=== PATIENT | male | born 2000 | race Hispanic/Latino ===

== ENCOUNTER 2018-07-08 10:03 | Emergency (ER) | payer OTHER ==
--- NOTE | 2018-07-08 11:15 | ER ---
Nurse's Notes [facility] Name: Brad Valente Age: 17 yrs Sex: Male : 2000 Arrival Date: 07/08/2018 Time: 10:08 Bed 12 Private MD: Diagnosis: Chest pain, unspecified Presentation: 07/08 10:24 Presenting complaint: Patient states: i have been having chest pain for months, it tw2 comes and goes but its gotten worse, it feels like a squeezing pain in my chest and goes into my left arm. Transition of care: patient was not received from another setting of care. Onset of symptoms was July 08, 2018. Risk Assessment: Do you want to hurt yourself or someone else? Patient reports no desire to harm self or others. Initial Sepsis Screen: Does the patient meet any 2 criteria? No. Patient's initial sepsis screen is negative. Does the patient have a suspected source of infection? No. Patient's initial sepsis screen is negative. Care prior to arrival: None. 10:24 Method Of Arrival: Ambulatory tw2 10:24 Acuity: JOSE 3 tw2 Historical: - Allergies: 10:26 No Known Allergies; tw2 - Home Meds: 10:26 None [Active]; tw2 - PMHx: 10:26 None; tw2 - PSHx: 10:26 None; tw2 - Immunization history:: Adult Immunizations up to date. - Social history:: Smoking status: Patient/guardian denies using tobacco. - Ebola Screening: : Patient denies travel to an Ebola-affected area in the 21 days before illness onset. Screenin:00 Abuse screen: Denies threats or abuse. Denies injuries from another. Nutritional iw screening: No deficits noted. Tuberculosis screening: No symptoms or risk factors identified. Fall Risk None identified. Assessment: 10:59 General: Appears in no apparent distress. comfortable, Behavior is calm, cooperative. iw Pain: Denies pain. Pain does not radiate. Pain began Is intermittent. Neuro: Level of Consciousness is awake, alert, obeys commands, Oriented to person, place, time, situation, Moves all extremities. Full function. Cardiovascular: Patient's skin is warm and dry. Respiratory: Respiratory effort is even, unlabored, Respiratory pattern is regular, symmetrical. Derm: Skin is intact, is healthy with good turgor. Musculoskeletal: Range of motion: intact in all extremities. Vital Signs: 10:25 BP 122 / 81; Pulse 57; Resp 18; Temp 97.7(O); Pulse Ox 98% on R/A; Weight 67.13 kg (R); tw2 Height 5 ft. 7 in. (170.18 cm); Pain 0/10; 10:25 Body Mass Index 23.18 (67.13 kg, 170.18 cm) tw2 10:25 but when it hits about an 8/10 tw2 ED Course: 10:08 Patient arrived in ED. mr 10:24 Triage completed. tw2 10:25 Arm band placed on. tw2 10:25 Patient has correct armband on for positive identification. Pulse ox on. iw 10:26 Patient maintains SpO2 saturation greater than 95% on room air. tw2 10:35 Treasure Little, RAVEN is Primary Nurse. iw 10:38 Elmer Fry NP is PHCP. pm1 10:38 Osito Lozano MD is Attending Physician. pm1 10:52 EKG done, by x ray service technician. reviewed by Osito Lozano MD. at1 11:30 No provider procedures requiring assistance completed. Patient did not have IV access iw during this emergency room visit. Administered Medications: No medications were administered Outcome: 11:14 Discharge ordered by . pm1 11:31 Discharged to home ambulatory, with family. iw 11:31 Condition: good 11:31 Discharge instructions given to patient, Instructed on discharge instructions, follow up and referral plans. Demonstrated understanding of instructions, follow-up care. 11:32 Patient left the ED. iw Signatures: Sophie Joya mr Treasure Little, RAVEN CARBAJAL iw Carrie Watkins, putty and caulking supervisor EKG Tat1 Elmer Fry NP DEBURRER pm1 Ginna Finn RN RN tw2
--- NOTE | 2018-07-08 11:15 | EDPHYS ---
Physician Documentation [facility] Name: Brad Valente Age: 17 yrs Sex: Male : 2000 Arrival Date: 07/08/2018 Time: 10:08 Bed 12 Private MD: ED Physician Osito Lozano HPI: 07/08 10:47 This 17 yrs old Male presents to ER via Ambulatory with complaints of Chest pm1 Pain. 10:47 The patient or guardian reports chest pain that is located primarily in the anterior pm1 chest wall, left. The pain does not radiate. Associated signs and symptoms: The patient has no apparent associated signs or symptoms. The chest pain is described as sharp. Duration: The patient or guardian reports a single episode, that is now resolved. Modifying factors: The symptoms are alleviated by nothing. the symptoms are aggravated by nothing. Severity of pain: in the emergency department the pain has resolved 14 day(s) prior to arrival. The patient has experienced similar episodes in the past, multiple times, On and off for the past 6 years. The patient has not recently seen a physician. Patient came to the ER today for evaluation of his chest pain due to the insistence of his mother. Patient with on and off chest pain for the past 6 years. Patient's last episode of chest pain was 2 weeks ago. Historical: - Allergies: 10:26 No Known Allergies; tw2 - Home Meds: 10:26 None [Active]; tw2 - PMHx: 10:26 None; tw2 - PSHx: 10:26 None; tw2 - Immunization history:: Adult Immunizations up to date. - Social history:: Smoking status: Patient/guardian denies using tobacco. - Ebola Screening: : Patient denies travel to an Ebola-affected area in the 21 days before illness onset. ROS: 10:47 Constitutional: Negative for fever, chills, and weight loss, Eyes: Negative for injury, pm1 pain, redness, and discharge, ENT: Negative for injury, pain, and discharge, Neck: Negative for injury, pain, and swelling, Respiratory: Negative for shortness of breath, cough, wheezing, and pleuritic chest pain, Abdomen/GI: Negative for abdominal pain, nausea, vomiting, diarrhea, and constipation, Back: Negative for injury and pain. 10:47 : Negative for injury, bleeding, discharge, and swelling, MS/Extremity: Negative for injury and deformity, Skin: Negative for injury, rash, and discoloration, Neuro: Negative for headache, weakness, numbness, tingling, and seizure. 10:47 Cardiovascular: Positive for chest pain, Negative for edema, orthopnea, palpitations. Exam: 10:47 Constitutional: This is a well developed, well nourished patient who is awake, alert, pm1 and in no acute distress. Head/Face: Normocephalic, atraumatic. Eyes: Pupils equal round and reactive to light, extra-ocular motions intact. Lids and lashes normal. Conjunctiva and sclera are non-icteric and not injected. Cornea within normal limits. Periorbital areas with no swelling, redness, or edema. ENT: Nares patent. No nasal discharge, no septal abnormalities noted. Tympanic membranes are normal and external auditory canals are clear. Oropharynx with no redness, swelling, or masses, exudates, or evidence of obstruction, uvula midline. Mucous membranes moist. Neck: Trachea midline, no thyromegaly or masses palpated, and no cervical lymphadenopathy. Supple, full range of motion without nuchal rigidity, or vertebral point tenderness. No Meningismus. Chest/axilla: Normal chest wall appearance and motion. Nontender with no deformity. No lesions are appreciated. Cardiovascular: Regular rate and rhythm with a normal S1 and S2. No gallops, murmurs, or rubs. Normal PMI, no JVD. No pulse deficits. Respiratory: Lungs have equal breath sounds bilaterally, clear to auscultation and percussion. No rales, rhonchi or wheezes noted. No increased work of breathing, no retractions or nasal flaring. Abdomen/GI: Soft, non-tender, with normal bowel sounds. No distension or tympany. No guarding or rebound. No evidence of tenderness throughout. Back: No spinal tenderness. No costovertebral tenderness. Full range of motion. Skin: Warm, dry with normal turgor. Normal color with no rashes, no lesions, and no evidence of cellulitis. MS/ Extremity: Pulses equal, no cyanosis. Neurovascular intact. Full, normal range of motion. 10:47 Neuro: Orientation: is normal, Motor: is normal, moves all fours, Gait: is steady, at a normal pace, without difficulty. Vital Signs: 10:25 BP 122 / 81; Pulse 57; Resp 18; Temp 97.7(O); Pulse Ox 98% on R/A; Weight 67.13 kg (R); tw2 Height 5 ft. 7 in. (170.18 cm); Pain 0/10; 10:25 Body Mass Index 23.18 (67.13 kg, 170.18 cm) tw2 10:25 but when it hits about an 8/10 tw2 MDM: 10:39 Patient medically screened. pm1 10:47 Data reviewed: vital signs. Data interpreted: Pulse oximetry: on room air is 98 %. pm1 Interpretation: normal. 11:14 Counseling: I had a detailed discussion with the patient and/or guardian regarding: the pm1 historical points, exam findings, and any diagnostic results supporting the discharge/admit diagnosis, the need for outpatient follow up, a family practitioner, to return to the emergency department if symptoms worsen or persist or if there are any questions or concerns that arise at home. Administered Medications: No medications were administered Disposition: 07/08/18 11:14 Discharged to Home. Impression: Chest pain, unspecified. - Condition is Stable. - Discharge Instructions: Nonspecific Chest Pain. - Work release form, Medication Reconciliation Form, Thank You Letter form. - Follow up: Emergency Department; When: As needed; Reason: Worsening of condition. Follow up: Private Physician; When: 2 - 3 days; Reason: Recheck today's complaints, Continuance of care, Re-evaluation by your physician. - Problem is new. - Symptoms are resolved. Addendum: 07/15/2018 08:50 Co-signature as Attending Physician, Osito Lozano MD I agree with the assessment and k dr plan of care. Signatures: Osito Lozano MD MD kdr Treasure Little RN RN iw Elmer Fry, ROEL INFECTION PREVENTION COORDINATOR pm1 Ginna Finn RN RN tw2 Corrections: (The following items were deleted from the chart) 07/08 11:32 11:14 07/08/2018 11:14 Discharged to Home. Impression: Chest pain, unspecified. iw Condition is Stable. Forms are Medication Reconciliation Form, Thank You Letter, Antibiotic Education, Prescription Opioid Use. Follow up: Emergency Department; When: As needed; Reason: Worsening of condition. Follow up: Private Physician; When: 2 - 3 days; Reason: Recheck today's complaints, Continuance of care, Re-evaluation by your physician. Problem is new. Symptoms are resolved. pm1
--- NOTE | 2018-07-08 16:49 | EKG ---
Test Date: 2018-07-08 Test Time: 10:22:51 Recycling Crew Supervisor: ROGER MEASUREMENT RESULTS: Intervals: Rate: 58 DC: 98 QRSD: 94 QT: 400 QTc: 392 [place]: P: 43 DC: 98 QRS: 85 T: 69 INTERPRETIVE STATEMENTS: Sinus bradycardia with short DC Otherwise normal ECG Compared to ECG 03/19/2011 07:07:14 Short DC interval now present Sinus rhythm no longer present Electronically Signed On 07-08-18 16:48:27 CMA OR LPN by Judah Nye
== END 2018-07-08 11:32 | disposition home or self-care (01) ==
LOC: ER 10:03
DX: R07.9 Chest pain, unspecified (principal)
CPT/HCPCS: 93005; 99284

== ENCOUNTER 2020-07-08 11:54 | Emergency (ER) | payer OTHER, SELFPAY ==
--- OUTSIDE RECORDS SUMMARY | 2020-07-08 11:56 | XMS REPORT | Continuity of Care Document ---
:2000 Author Organization [facility] t Address [address] [place] [address] [address] [place] [address] Care Team Providers Name Role Phone Unavailable Unavailable Unavailable Problems This patient has no known problems. Allergies, Adverse Reactions, Alerts This patient has no known allergies or adverse reactions. Medications This patient has no known medications. Procedures This patient has no known procedures. Results This patient has no known results.
[2020-07-08] MEDS ORDERED: MORPHINE 4 MG/ML SYR ONE (12:14)
--- NOTE | 2020-07-08 12:24 | RAD REPORT ---
EXAM DESCRIPTION: RAD - Shoulder Left 2 View - 07/08/2020 12:14 pm CLINICAL HISTORY: likely dislocated;Pain COMPARISON: None TECHNIQUE: Internal and external rotation views of the left shoulder were obtained. Scapula Y-view a lso obtained. FINDINGS: Left humeral head is dislocated medial and inferior to the glenoid typical for anterior di slocation. No fracture of the proximal humerus identifiable. No AC joint abnormality. No other signif icant finding. IMPRESSION: Anterior dislocation left humeral head. No fracture identified.
[2020-07-08] MEDS ORDERED: ETOMIDATE 20 MG/10 ML VIAL IV ONE (12:47)
[2020-07-08] MEDS ORDERED: ONDANSETRON 4 MG/2 ML VIAL ONE (12:55)
--- NOTE | 2020-07-08 13:11 | EDPHYS ---
Physician Documentation [facility] Name: Brad Valente Age: 19 yrs Sex: Male : 2000 Arrival Date: 07/08/2020 Time: 11:55 Bed 4 Private MD: ED Physician Jordan Khanna HPI: 07/08 11:57 This 19 yrs old Male presents to ER via Unassigned with complaints of possible rn shoulder dislocation. 11:57 The patient or guardian complains of decreased range of motion, deformity, an injury, rn pain. left shoulder. Onset: The symptoms/episode began/occurred just prior to arrival. Modifying factors: the symptoms are alleviated by nothing. The symptoms are aggravated by movement, rotation of arm. Severity of symptoms: At their worst the symptoms were mild, in the emergency department the symptoms are unchanged. The patient has not experienced similar symptoms in the past. The patient has not recently seen a physician. Reports playing soccer, left hand got caught in grass and got pulled back behind body, heard a pop, has never had shoulder injury or surgery/dislocation. No other injury or pain. . Historical: - Allergies: 12:08 No Known Allergies; jl7 - Home Meds: 12:08 None [Active]; jl7 - PMHx: 12:08 None; jl7 - PSHx: 12:08 None; jl7 - Immunization history:: Adult Immunizations unknown. - Social history:: Smoking status: unknown. - Family history:: not pertinent. ROS: 11:57 Constitutional: Negative for fever, chills, and weight loss, Neck: Negative for injury, rn pain, and swelling, Cardiovascular: Negative for chest pain, palpitations, and edema, Respiratory: Negative for shortness of breath, cough, wheezing, and pleuritic chest pain, Back: Negative for injury and pain, MS/Extremity: + left arm injury and pain Neuro: Negative for headache, weakness, numbness, tingling, and seizure. Exam: 11:57 Constitutional: This is a well developed, well nourished patient who is awake, alert, rn left arm held in passive flexion, appears uncomfortable. Head/Face: Normocephalic, atraumatic. Neck: NO midline tenderness Chest/axilla: Normal chest wall appearance and motion. Nontender with no deformity. No lesions are appreciated. Cardiovascular: Tachycardic, regular Respiratory: No increased work of breathing, no retractions or nasal flaring. MS/ Extremity: Pulses equal, no cyanosis. Neurovascular intact. Left arm held in passive flexion, left glenoid appears empty with anterior/medial prominence. Vital Signs: 11:55 BP 121 / 95; Pulse 70; Resp 19; Temp 97.8; Pulse Ox 100% ; Pain 10/10; jl7 12:58 BP 154 / 89; Pulse 65; Resp 15; Pulse Ox 100% ; jl7 Procedures: 13:06 Reduction: of the left shoulder, using traction, manipulation, rn traction/countertraction, Immobilized with shoulder immobilizer. Patient tolerated well. Post reduction film - reveals normal alignment. Moderate sedation: Pre-procedure assessment: the patient has been NPO 3 hour(s) prior to arrival, ASA physical classification: I - healthy, no underlying organic disease, Airway assessment: able to hyperextend neck, able to maintain airway, can open mouth without difficulty, Monitoring during procedure: monitoring tech, continuous pulse oximetry, nurse at bedside at all times, Medications employed: Etomidate, 20 mg(s), Post-procedure assessment: the patient is mildly sedated, pt required higher than normal dose of etomidate, likely secondary to amount of drinking he does, reported after sedation started that drinks about 16 beers at a time. . MDM: 11:55 Patient medically screened. rn 13:06 Differential diagnosis: Anterior dislocation with fracture, Anterior dislocation rn without fracture, humeral head fracture, glenoid fracture. Data reviewed: vital signs, nurses notes, radiologic studies, plain films. Test interpretation: by ED physician or midlevel provider: plain radiologic studies, Xray shoulder shows Anterior shoulder dislocation without fracture. Counseling: I had a detailed discussion with the patient and/or guardian regarding: the historical points, exam findings, and any diagnostic results supporting the discharge/admit diagnosis, radiology results, the need for outpatient follow up, to return to the emergency department if symptoms worsen or persist or if there are any questions or concerns that arise at home. Response to treatment: the patient's symptoms have markedly improved after treatment, and as a result, I will discharge patient. Special discussion: I discussed with the patient/guardian in detail that at this point there is no indication for admission to the hospital. It is understood, however, that if the symptoms persist or worsen the patient needs to return immediately for re-evaluation. ED course: Pt awake, talking, even 20 mg etomidate didn't put him to complete sedation, has ride home, stable vitals, post-reduction xray shows successful reduction.. 13:10 Counseling: I had a detailed discussion with the patient and/or guardian regarding: rn Counseled several times to stop or limit drinking. . 07/08 11:56 Order name: XRAY Shoulder LEFT 2 view; Complete Time: 12:27 rn 07/08 12:54 Order name: XRAY Shoulder (1 View) rn 07/08 11:56 Order name: NPO; Complete Time: 12:08 rn 07/08 11:56 Order name: IV Start; Complete Time: 12:08 rn Administered Medications: 12:00 Drug: morphine 4 mg Route: IVP; Site: right antecubital; jl7 12:30 Follow up: Response: No adverse reaction; Pain is unchanged, physician notified jl7 12:43 Drug: Etomidate 20 mg Route: IVP; Site: right antecubital; jl7 12:59 Follow up: Response: No adverse reaction jl7 Disposition: 07/08/20 13:10 Discharged to Home. Impression: Other dislocation of left shoulder joint. - Condition is Stable. - Discharge Instructions: Shoulder Dislocation, How to Use a Shoulder Immobilizer. - Medication Reconciliation Form, Thank You Letter, Antibiotic Education, Prescription Opioid Use form. - Follow up: Alf Castro MD; When: As needed; Reason: Recheck today's complaints, Re-evaluation by your physician. - Problem is new. - Symptoms have improved. Signatures: Dispatcher [employer] EDMS Jordan Khanna MD MD rn Leal, Jahala, RN RN jl7 Corrections: (The following items were deleted from the chart) 13:35 13:10 07/08/2020 13:10 Discharged to Home. Impression: Other dislocation of left jl7 shoulder joint. Condition is Stable. Forms are Medication Reconciliation Form, Thank You Letter, Antibiotic Education, Prescription Opioid Use. Follow up: Alf Castro; When: As needed; Reason: Recheck today's complaints, Re-evaluation by your physician. Problem is new. Symptoms have improved. rn
--- NOTE | 2020-07-08 13:11 | ER ---
Nurse's Notes [facility] Name: Brad Valente Age: 19 yrs Sex: Male : 2000 Arrival Date: 07/08/2020 Time: 11:55 Bed 4 Private MD: Diagnosis: Other dislocation of left shoulder joint Presentation: 07/08 11:55 Chief complaint: EMS states: playing soccer, fell with left arm out in front, left jl7 shoulder appears dislocated. Coronavirus screen: Client denies travel out of the [place] in the last 14 days. At this time, the client does not indicate any symptoms associated with coronavirus-19. Ebola Screen: No symptoms or risks identified at this time. Initial Sepsis Screen: Does the patient meet any 2 criteria? No. Patient's initial sepsis screen is negative. Does the patient have a suspected source of infection? No. Patient's initial sepsis screen is negative. 11:55 Method Of Arrival: EMS: [place] [address] 11:55 Risk Assessment: Do you want to hurt yourself or someone else? Patient reports no jl7 desire to harm self or others. Onset of symptoms was July 08, 2020. Care prior to arrival: Medication(s) given: Fentanyl 50 mcg, IV IV initiated. 18 GA, in the right antecubital area. 11:55 Acuity: JOSE 3 jl7 Triage Assessment: 11:55 General: Appears in no apparent distress. uncomfortable, Behavior is calm, cooperative, jl7 appropriate for age. Pain: Complains of pain in left shoulder. Neuro: Level of Consciousness is awake, alert, obeys commands, Oriented to person, place, time, situation. Cardiovascular: Patient's skin is warm and dry. Respiratory: Airway is patent Respiratory effort is even, unlabored, Respiratory pattern is regular, symmetrical. Derm: Skin is pink, warm \T\ dry. Musculoskeletal: Swelling present in left shoulder. Historical: - Allergies: 12:08 No Known Allergies; jl7 - Home Meds: 12:08 None [Active]; jl7 - PMHx: 12:08 None; jl7 - PSHx: 12:08 None; jl7 - Immunization history:: Adult Immunizations unknown. - Social history:: Smoking status: unknown. - Family history:: not pertinent. Screenin:00 Abuse screen: Denies threats or abuse. Denies injuries from another. Nutritional jl7 screening: No deficits noted. Tuberculosis screening: No symptoms or risk factors identified. Fall Risk IV access (20 points). Total Delarosa Fall Scale indicates No Risk (0-24 pts). Assessment: 12:00 General: See triage assessment. jl7 12:58 Reassessment: Patient appears in no apparent distress at this time. Patient and/or jl7 family updated on plan of care and expected duration. Pain level reassessed. Patient is alert, oriented x 3, equal unlabored respirations, skin warm/dry/pink. Patient states feeling better. Patient states symptoms have improved. 13:35 Reassessment: Patient appears in no apparent distress at this time. Neuro: Level of jl7 Consciousness is awake, alert, obeys commands, Oriented to person, place, time, situation. Cardiovascular: Patient's skin is warm and dry. Respiratory: Airway is patent Respiratory effort is even, unlabored, Respiratory pattern is regular, symmetrical. Vital Signs: 11:55 BP 121 / 95; Pulse 70; Resp 19; Temp 97.8; Pulse Ox 100% ; Pain 10/10; jl7 12:58 BP 154 / 89; Pulse 65; Resp 15; Pulse Ox 100% ; jl7 ED Course: 11:55 Patient arrived in ED. rn 11:55 Jordan Khanna MD is Attending Physician. rn 11:55 Arm band placed on right wrist. jl7 11:57 Gianfranco Deluna, RAVEN is Primary Nurse. jl7 12:00 Patient has correct armband on for positive identification. Placed in gown. Bed in low jl7 position. Call light in reach. Side rails up X 1. hall monitor on. Pulse ox on. NIBP on. Warm blanket given. 12:06 Triage completed. jl7 12:14 XRAY Shoulder LEFT 2 view In Process Unspecified. EDMS 13:10 Alf Castro MD is Referral Physician. rn 13:24 XRAY Shoulder (1 View) In Process Unspecified. EDMS 13:34 No provider procedures requiring assistance completed. IV discontinued, intact, jl7 bleeding controlled, No redness/swelling at site. Pressure dressing applied. Administered Medications: 12:00 Drug: morphine 4 mg Route: IVP; Site: right antecubital; jl7 12:30 Follow up: Response: No adverse reaction; Pain is unchanged, physician notified jl7 12:43 Drug: Etomidate 20 mg Route: IVP; Site: right antecubital; jl7 12:59 Follow up: Response: No adverse reaction jl7 Outcome: 13:10 Discharge ordered by . rn 13:34 Discharged to home ambulatory. jl7 13:34 Condition: stable 13:34 Discharge instructions given to patient, Instructed on discharge instructions, follow up and referral plans. Demonstrated understanding of instructions, follow-up care. 13:35 Patient left the ED. jl7 Signatures: Dispatcher [employer] EDMS Jordan Khanna MD MD rn Leal, Jahala, RN RN jl7
--- NOTE | 2020-07-08 13:38 | RAD REPORT ---
EXAM DESCRIPTION: RAD - Shoulder 1 View - 07/08/2020 1:24 pm FINDINGS: Single AP view labeled postreduction shows the humeral head in anatomic position. No fracture or suspicious finding.
[2020-07-08 13:40] VITALS: TEMP 97.8; O2SAT 100
[2020-07-08 13:46] VITALS: BP 154/89
== END 2020-07-08 13:35 | disposition home or self-care (01) ==
LOC: ER 11:54
PROC: 0RSKXZZ Reposition Left Shoulder Joint, External Approach (ICD-10-PCS; principal; 2020-07-08)
DX: S43.085A Other dislocation of left shoulder joint, initial encounter (principal); X58.XXXA Exposure to other specified factors, initial encounter; Y93.66 Activity, soccer; Y92.322 Soccer field as the place of occurrence of the external cause
CPT/HCPCS: 73020; 96374; 96375; 99284; J2405

== ENCOUNTER 2022-01-12 15:00 | Emergency (ER) | payer SELFPAY ==
[2022-01-12] MEDS ORDERED: MIDAZOLAM HCL 2 MG/2 ML INJ ONE (15:26)
[2022-01-12] MEDS ORDERED: FENTANYL CITR 100 MCG/2 ML ONE (15:26)
[2022-01-12] MEDS ORDERED: ONDANSETRON 4 MG/2 ML VIAL ONE (15:26)
[2022-01-12] MEDS ORDERED: KETAMINE HCL 500 MG/5 ML VIAL ONE (15:43)
--- NOTE | 2022-01-12 16:02 | RAD REPORT ---
EXAM DESCRIPTION: RAD - Shoulder Right 2 View - 01/12/2022 3:54 pm CLINICAL HISTORY: PAIN COMPARISON: Shoulder Left 2 View dated 07/08/2020; Shoulder 1 View dated 07/08/2020 FINDINGS/IMPRESSION: The left shoulder is located. The position is similar to the postreduction radi ograph from 07/08/2020. Chronic deformity at the greater tuberosity.
--- NOTE | 2022-01-12 16:33 | ER ---
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 States this is his 4th time to dislocate the same shoulder. Coronavirus screen: Vaccine status: Patient reports being unvaccinated. Client denies travel out of the [place] in the last 14 days. At this time, the client does not indicate any symptoms associated with coronavirus-19. Ebola Screen: Patient denies travel to an Ebola-affected area in the 21 days before illness onset. Initial Sepsis Screen: Does the patient meet any 2 criteria? No. Patient's initial sepsis screen is negative. Does the patient have a suspected source of infection? Yes: Bone or joint infection. Risk Assessment: Do you want to hurt yourself or someone else? Patient reports no desire to harm self or others. Onset of symptoms was January 12, 2022. 15:12 Method Of Arrival: Ambulatory ll1 15:12 Acuity: JOSE 2 ll1 Triage Assessment: 15:13 General: Appears uncomfortable, ill, Behavior is cooperative, appropriate for age. ll1 Pain: Complains of pain in left shoulder Quality of pain is described as aching, throbbing. Musculoskeletal: Circulation, motion, and sensation intact. Capillary refill < 3 seconds, Range of motion: intact in left shoulder. Historical: - Allergies: 15:12 No Known Allergies; ll1 - PMHx: 15:12 shoulder dislocation; ll1 - Immunization history:: Client reports having NOT received the Covid vaccine. - Social history:: Smoking status: Patient denies any tobacco usage or history of. Screenin:11 Abuse screen: Denies threats or abuse. Nutritional screening: No deficits noted. jd3 Tuberculosis screening: Fall Risk Ambulatory Aid- None/Bed Rest/Nurse Assist (0 pts). Gait- Normal/Bed Rest/Wheelchair (0 pts) Mental Status- Oriented to own ability (0 pts). Total Delarosa Fall Scale indicates No Risk (0-24 pts). Assessment: 15:10 General: Appears in no apparent distress. uncomfortable, Behavior is calm, cooperative, jd3 appropriate for age. Pain: Complains of pain in left shoulder. Neuro: Lee Agitation-Sedation Scale (RASS): 0 - Alert and Calm Level of Consciousness is awake, alert, obeys commands, Oriented to person, place, time, situation. Cardiovascular: Capillary refill < 3 seconds Patient's skin is warm and dry. Respiratory: Airway is patent Respiratory effort is even, unlabored, Respiratory pattern is regular, symmetrical. GI: No signs and/or symptoms were reported involving the gastrointestinal system. : No signs and/or symptoms were reported regarding the genitourinary system. EENT: No signs and/or symptoms were reported regarding the EENT system. Derm: Skin is intact, Skin is dry, Skin is normal, Skin temperature is warm. Musculoskeletal: Circulation, motion, and sensation intact. Range of motion: limited in left shoulder Swelling present in left shoulder. 15:38 Reassessment: Patient and/or family updated on plan of care and expected duration. Pain jd3 level reassessed. Patient is alert, oriented x 3, equal unlabored respirations, skin warm/dry/pink. conscious sedation for reduction of left shoulder done. see conscious sedation flow sheet. 16:05 Reassessment: Patient and/or family updated on plan of care and expected duration. Pain jd3 level reassessed. Patient is alert, oriented x 3, equal unlabored respirations, skin warm/dry/pink. pt fully awake. end of 1:1 monitoring post conscious sedation/ reduction. 16:43 Reassessment: Patient appears in no apparent distress at this time. Patient and/or jd3 family updated on plan of care and expected duration. Pain level reassessed. Patient is alert, oriented x 3, equal unlabored respirations, skin warm/dry/pink. Patient states feeling better. 16:56 Reassessment: Patient appears in no apparent distress at this time. Patient and/or jd3 family updated on plan of care and expected duration. Pain level reassessed. Patient is alert, oriented x 3, equal unlabored respirations, skin warm/dry/pink. even and steady gait to front of ER to meet family for discharge. Vital Signs: 15:12 BP 91 / 70; Pulse 54; Resp 18; Temp 97.9; Pulse Ox 100% ; Weight 68.95 kg; Height 5 ft. ll1 7 in. (170.18 cm); Pain 8/10; 16:14 BP 124 / 90; Pulse 98; Resp 15; Pulse Ox 97% on 4 lpm NC; jd3 16:25 Pain 4/10; jd3 16:43 BP 129 / 88; Pulse 91; Resp 16; Pulse Ox 98% on R/A; jd3 15:12 Body Mass Index 23.81 (68.95 kg, 170.18 cm) ll1 ED Course: 15:01 Patient arrived in ED. mr 15:06 Brenda Bhatia MD is Attending Physician. sd2 15:10 Misha Arce, RAVEN is Primary Nurse. jd3 15:11 Arm band placed on Patient placed in an exam room, on a stretcher. ll1 15:13 Triage completed. ll1 15:15 Consent for conscious sedation explained by staff, explained by physician, verbal jd3 consent given by pt prior to procedure. signed copy to be added to chart prior to discharge. 15:48 Shoulder immobilizer applied on left shoulder. jd3 15:56 XRAY Shoulder RIGHT 2 view In Process Unspecified. EDMS 16:15 Patient has correct armband on for positive identification. Bed in low position. Call jd3 light in reach. Side rails up X2. Client placed on continuous cardiac and pulse oximetry monitoring. NIBP monitoring applied. environmental monitoring technician on. Pulse ox on. NIBP on. 16:31 Alf Castro MD is Referral Physician. sd2 16:57 No provider procedures requiring assistance completed. IV discontinued, intact, jd3 bleeding controlled, No redness/swelling at site. Pressure dressing applied. Administered Medications: 15:25 Drug: Zofran (Ondansetron) 4 mg Route: IVP; Site: right antecubital; jd3 16:25 Follow up: Response: No adverse reaction jd3 15:25 Drug: fentaNYL (PF) 100 mcg {Note: pain 10/10.} Route: IVP; Site: right antecubital; jd3 16:25 Follow up: Pain 4/10 Adult; Response: No adverse reaction; RASS: Alert and Calm (0) jd3 15:25 Drug: Midazolam 1 mg {Note: given by provider.} Route: IVP; Site: right antecubital; jd3 16:25 Follow up: Response: No adverse reaction; RASS: Alert and Calm (0) jd3 15:38 Drug: Ketamine 50 mg {Note: given by provider.} Route: IVP; Site: right antecubital; jd3 16:35 Follow up: Response: No adverse reaction; RASS: Alert and Calm (0) jd3 Medication: 16:07 VIS not applicable for this client. jd3 Outcome: 16:32 Discharge ordered by . sd2 16:57 Discharged to home ambulatory, with family. jd3 16:57 Condition: stable 16:57 Discharge instructions given to patient, Instructed on discharge instructions, follow up and referral plans. Demonstrated understanding of instructions, follow-up care. 16:58 Patient left the ED. jd3 Signatures: Dispatcher [employer] RAYAMS JoyaSophie mr ArceMisha RN RN jd3 Bautista Mcfadden RN RN ll1 Brenda Bhatia MD MD sd2 Corrections: (The following items were deleted from the chart) 16:12 15:25 fentaNYL (PF) 100 mcg IVP in right antecubital jd3 jd3
--- NOTE | 2022-01-12 16:33 | EDPHYS ---
Physician Documentation [facility] Name: Brad Valente Age: 21 yrs Sex: Male : 2000 Arrival Date: 01/12/2022 Time: 15:01 Bed 15 Private MD: ED Physician Brenda Bhatia HPI: 01/12 15:55 This 21 yrs old Male presents to ER via Ambulatory with complaints of sd2 Dislocated shoulder. 16:25 21-year-old male presents with chief complaint of left dislocated shoulder that sd2 occurred while he was playing soccer today. He reports another teammate came up behind him and lifted his arm and rotated it backwards causing it to dislocate. He has a history of 3 prior shoulder dislocations on the same side. He has yet to follow-up with orthopedics regarding this. He denies any other areas of injury or pain at this time. He denies any numbness, tingling or weakness to the arm.. Historical: - Allergies: 15:12 No Known Allergies; ll1 - PMHx: 15:12 shoulder dislocation; ll1 - Immunization history:: Client reports having NOT received the Covid vaccine. - Social history:: Smoking status: Patient denies any tobacco usage or history of. ROS: 16:25 Constitutional: Negative for fever, chills, and weight loss, Cardiovascular: Negative sd2 for chest pain, palpitations, and edema, Respiratory: Negative for shortness of breath, cough, wheezing. Abdomen/GI: Negative for abdominal pain, nausea, vomiting, diarrhea. MS/Extremity: Positive for injury and deformity. Skin: Negative for injury, rash, and discoloration, Neuro: Negative for headache, numbness and tingling. Exam: 16:25 Constitutional: This is a well developed, well nourished patient who is awake, alert, sd2 and in no acute distress. Head/Face: Normocephalic, atraumatic. Chest/axilla: Normal chest wall appearance and motion. Nontender with no deformity. Cardiovascular: Tachycardic rate and regular rhythm with a normal S1 and S2. No gallops, murmurs, or rubs. 2+ distal pulses. Respiratory: Lungs have equal breath sounds bilaterally, clear to auscultation and percussion. No rales, rhonchi or wheezes noted. No increased work of breathing, no retractions or nasal flaring. Abdomen/GI: Soft, non-tender, with normal bowel sounds. No guarding or rebound. No evidence of tenderness throughout. Skin: Warm, dry with normal turgor. Normal color with no rashes, no lesions, and no evidence of cellulitis. MS/ Extremity: Pulses equal, no cyanosis. Neurovascular intact. Limited ROM of R shoulder 2/2 pain. Deformity present to the shoulder. Ambulatory without difficulty. Psych: Awake, alert, with orientation to person, place and time. Behavior, mood, and affect are within normal limits. Vital Signs: 15:12 BP 91 / 70; Pulse 54; Resp 18; Temp 97.9; Pulse Ox 100% ; Weight 68.95 kg; Height 5 ft. ll1 7 in. (170.18 cm); Pain 8/10; 16:14 BP 124 / 90; Pulse 98; Resp 15; Pulse Ox 97% on 4 lpm NC; jd3 16:25 Pain 4/10; jd3 16:43 BP 129 / 88; Pulse 91; Resp 16; Pulse Ox 98% on R/A; jd3 15:12 Body Mass Index 23.81 (68.95 kg, 170.18 cm) ll1 Procedures: 16:25 Reduction: of the left shoulder, using traction, manipulation, flexion, Immobilized sd2 with sling, Patient tolerated well. Post reduction film - reveals improved alignment. Moderate sedation: Pre-procedure assessment: the patient has been NPO an unknown amount of time prior to arrival, ASA physical classification: I - healthy, no underlying organic disease, Airway assessment: able to hyperextend neck, able to maintain airway, can open mouth without difficulty, Mallampati classification of tongue size: I - faucial pillars, soft palate, and uvula can be fully visualized, Monitoring during procedure: pvc monitor, continuous pulse oximetry, nurse at bedside at all times, Medications employed: Fentanyl, Ketamine, Versed, Pt initially trialed without sedation at his request and unsuccessful. Fentanyl, Versed and Zofran given with another attempt at reduction that was unsuccessful. Pt consented and given ketamine and reduction successful at that time., Post-procedure assessment: the patient is not sedated, Respiratory status: even and unlabored, Narcan was used. MDM: 15:10 Patient medically screened. sd2 16:25 Differential diagnosis: Dislocation, fracture, ligamentous injury, neurovascular injury sd2 among others. Data reviewed: vital signs, nurses notes, radiologic studies. Counseling: I had a detailed discussion with the patient and/or guardian regarding: the historical points, exam findings, and any diagnostic results supporting the discharge/admit diagnosis, radiology results, the need for outpatient follow up. Medical screen evaluation completed. [facility] emergency medical condition absent. ED course: Reduction performed based upon clear clinical exam consistent with dislocation. successful post-reduction XR. Pt is closed and NVI. Advised of need for follow up with Ortho. Verbalizes understanding of discharge plan and strict return precautions. . 01/12 15:11 Order name: XRAY Shoulder RIGHT 2 view; Complete Time: 16:07 sd2 Administered Medications: 15:25 Drug: Zofran (Ondansetron) 4 mg Route: IVP; Site: right antecubital; jd3 16:25 Follow up: Response: No adverse reaction jd3 15:25 Drug: fentaNYL (PF) 100 mcg {Note: pain 10/10.} Route: IVP; Site: right antecubital; jd3 16:25 Follow up: Pain 4/10 Adult; Response: No adverse reaction; RASS: Alert and Calm (0) jd3 15:25 Drug: Midazolam 1 mg {Note: given by provider.} Route: IVP; Site: right antecubital; jd3 16:25 Follow up: Response: No adverse reaction; RASS: Alert and Calm (0) jd3 15:38 Drug: Ketamine 50 mg {Note: given by provider.} Route: IVP; Site: right antecubital; jd3 16:35 Follow up: Response: No adverse reaction; RASS: Alert and Calm (0) jd3 Disposition Summary: 01/12/22 16:32 Discharge Ordered Location: Home sd2 Problem: an acute exacerbation sd2 Symptoms: have improved sd2 Condition: Stable sd2 Diagnosis - Recurrent dislocation, left shoulder sd2 Followup: sd2 - With: Alf Castro MD - When: 2 - 3 days - Reason: Recheck today's complaints, Continuance of care Followup: sd2 - With: Emergency Department - When: As needed - Reason: Discharge Instructions: - Discharge Summary Sheet sd2 - Shoulder Dislocation sd2 - Surgery for Recurrent Shoulder Laxity and Instability sd2 - Recurrent Shoulder Laxity and Instability sd2 Forms: - Medication Reconciliation Form sd2 - Thank You Letter sd2 - Antibiotic Education sd2 - Prescription Opioid Use sd2 Signatures: Dispatcher [employer] [facility] Misha Arce, RN RN jd3 Bautista Mcfadden RN RN ll1 Brenda Bhatia MD MD sd2 Corrections: (The following items were deleted from the chart) 15:54 15:42 Shoulder Right 2 View+[email or web address] ordered. [facility] 16:31 16:25 Constitutional: This is a well developed, well nourished patient who is awake, sd2 alert, and in no acute distress. Head/Face: Normocephalic, atraumatic. Chest/axilla: Normal chest wall appearance and motion. Nontender with no deformity. Cardiovascular: Tachycardic rate and regular rhythm with a normal S1 and S2. No gallops, murmurs, or rubs. 2+ distal pulses. Respiratory: Lungs have equal breath sounds bilaterally, clear to auscultation and percussion. No rales, rhonchi or wheezes noted. No increased work of breathing, no retractions or nasal flaring. Abdomen/GI: Soft, non-tender, with normal bowel sounds. No guarding or rebound. No evidence of tenderness throughout. Skin: Warm, dry with normal turgor. Normal color with no rashes, no lesions, and no evidence of cellulitis. MS/ Extremity: Pulses equal, no cyanosis. Neurovascular intact. Full, normal range of motion. Ambulatory without difficulty. Psych: Awake, alert, with orientation to person, place and time. Behavior, mood, and affect are within normal limits. sd2
[2022-01-12 17:19] VITALS: TEMP 97.9
[2022-01-12 17:26] VITALS: BP 129/88; O2SAT 98
== END 2022-01-12 16:58 | disposition home or self-care (01) ==
LOC: ER 15:00
PROC: 0RSKXZZ Reposition Left Shoulder Joint, External Approach (ICD-10-PCS; principal; 2022-01-12)
DX: M24.412 Recurrent dislocation, left shoulder (principal)
CPT/HCPCS: 96374; 96375; 99284; J2250; J2405; J3010